=== PATIENT | male | born 1945 | race Caucasian/White ===

== ENCOUNTER → 2016-12-30 | Outpatient (CLI) | payer OTHER ==
[~2016-12-30] MED LIST: ALL100 PO; ASPI325T45 PO; BROM1SOL8; CLB/200 PO; LISI-729 PO; MULT-506 PO; POLYSOL50; PRAV20TA PO; PRDFOPS
--- NOTE | 2016-12-31 05:53 | PAP/PSG TECHNICIAN REPORT ---
[facility] Timber Watchman Polysomnogram Report Study name: None Report date: 12/31/2016 Study date: 12/30/2016 Referring Physician: Murali ALICIA M.D. Name: JEREMY MAHER Interpreting Physician: Rd Alicia M.D. Date of : 1945 Timber Watchman: Zeferino Rajput RPSGT. Sex: Male Age: 71 StudyType: PSG Weight: 284 lbs 16.75 inches Height: 71 years, Height 5' 11" Neck Circum: BMI: 39.61 Medications: LISINOPRIL 5 MG, PRAVASTATIN 40 MG, ASPIRIN 81 MG, ALLOPURINOL 100 MG, CELEBREX 200 MG Patient History PATIENT HAS HISTORY OF INSOMNIA, FATIGUE AND LOUD SNORING. 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 ALSO HAS HISTORY OF MEMORY IMPAIRMENT. HE IS HERE TODAY FOR AN EVALUATION FOR ADILENE. ESS = 5 RM 7 Parameters Monitored NPSG: E1-M2, E2-M1, Fp1-M2, Fp2-M1, F3-M2, F4-M2, F4-M1, C3-M2, C4-M2, C4-M1, O1-M2, O2-M2, O2-M1, T3-M2, T4-M1, P3-M2, P4-M1, CHIN1, CHIN2, HR, EKG, Legs, PFLOW, SNOR, FLOW, CFLOW, Tidal Volume, THOR, ABDO, SpO2, PLTH, CPRESS, ETCO2 Wave, ETCO2, pH Sleep Architecture Sleep Stages Time at Lights Off 10:19:58 PM STAGES Time (min.) TST (%) Time at Lights On 5:29:58 AM Wake 218.0 -- Total Recording Time (TRT) 430.50 min. N1 17.5 8 Total Sleep Period (TSP) 410.0 min. N2 158.5 75 Total Sleep Time (TST) 212.0min. N3 0.0 0 Awake Time 218.0 min. REM 36.0 17 Wake after Sleep Onset 198.0 min. Sleep Efficiency (SE) 49 % Sleep Onset Latency (RAUDEL) 20.0 min. Number of Stage 1 Shifts None Awakenings 25 Stage Changes 82 Number of REM periods 4 REM 36.0 17 REM Latency 264.0 min. NREM 176.0 83 Body Position Analysis Supine Right Left Side Prone Vertical Total Sleep Time (min.) 0.0 212.0 0.0 212.00 0.0 0.0 Total Sleep Time (%) 0% 100% 0% 100 0% N/A% Total Sleep Time REM (min.) 0.0 36.0 0.0 None 0.0 0.0 Total Sleep Time NREM (min.) 0.0 176.0 0.0 None 0.0 0.0 Intermittent Wake (min.) 0.0 218.0 0.0 None 0.0 0.0 Total Sleep Period (%) 0% None None None None None Arousals Myoclonus (PLM) * Events Count Index Events Count Index Spontaneous 18 5 Events Awake (PLMW) 211 58.1 Respiratory 0 0.0 Events Asleep w/ Arousal (PLMA) 38 10.8 PLM 38 11 Events Asleep w/o Arousal (PLMS) 174 49.2 Snoring 3 1 Total Asleep 212 60.0 Total 59 17 Total 423 59 Respiratory Analysis * CA OA MA CH H RERA Total Count 0 0 1 0 3 0 4 Index 0.0 0.0 0.3 0 0.8 0 1.1 Mean Duration 0.0 0.0 17.5 0.00 21.1 0.0 20.2 Longest Duration 0.0 0.0 17.5 0.00 17.5 0.0 26.0 Respiratory Event Summary Total Supine ~Supine Right Left Prone REM NREM Apneas Count 1 N/A 1 1 N/A N/A 0 1 Index 0.3 N/A 0 0.3 N/A N/A 0 0 Hypopneas (4% Desat) Count 3 N/A 3 3 N/A N/A 3 0 Index 0.8 N/A 1 0.8 N/A N/A 5.0 0.0 Apneas & All Hypopneas Count 4 N/A 4 4 N/A N/A 3 1 Index 1.1 N/A 1 1 N/A N/A 5.0 0.3 Respiratory Events (Building Custodian+All Hyp+RERA) Count 4 N/A 4 4 N/A N/A 3 1 Index 1.1 N/A 1 1.1 N/A N/A 5.0 0.3 Respiratory Related Arousal Count 0 N/A 0 0 N/A N/A 0 0 Index 0.0 N/A 0 0 N/A N/A 0 0 Snoring Analysis Supine Right Left Prone REM NREM Total Snore duration 8.5 min Snores count N/A 347 N/A N/A 236 111 347 Snore mean duration 1.5 Sec Snores index N/A 98 N/A N/A 393.3 37.8 98.2 TST with snoring (%) 4.0% Desaturation Event Summary: Minimum %SpO2 Event Count Mean/Min/Max Duration(sec.) Desaturation Index % Time In Bed > 90 7 35.0 / 18.0 / 56.4 1.0 99.8 86 - 90 1 5.8 / 5.8 / 5.8 90.0 0.2 81 - 85 0 N/A 0.0 0.0 76 - 80 0 N/A 0.0 0.0 71 - 75 0 N/A 0.0 0.0 66 - 70 0 N/A 0.0 0.0 61 - 65 0 N/A 0.0 0.0 56 - 60 0 N/A 0.0 0.0 51 - 55 0 N/A 0.0 0.0 < 50 0 N/A 0.0 0.0 Total REM NREM Awake <50% 0.0 min. 0.0 min. 0.0 min. 0.0 min. 51 - 60% 0.0 min. 0.0 min. 0.0 min. 0.0 min. 61 - 70% 0.0 min. 0.0 min. 0.0 min. 0.0 min. 71 - 80% 0.0 min. 0.0 min. 0.0 min. 0.0 min. 81 - 90% 0.7 min. 0.4 min. 0.0 min. 0.3 min. 91 - 100% 403.4 min. 35.6 min. 175.9 min. 191.9 min. Average 94 94 93 94 Minimum SpO2 86 88 90 86 Desaturation Event Index 1.1 5.0 0.3 1.1 # Desat. Events below 89% 2 1 N/A 1 Time(%) with Saturation below 89% 0.0 0.0 0.0 0.0 Time(min.) with Saturation below 89% 0.2 0.1 0.0 0.1 Time (mins) REM (mins) NREM (mins) % of TST SpO2 Below 90% 1 1 NN/A 0.1 SpO2 Below 88% 0 0 0 0 Heart Rate Analysis Min (bpm) Max (bpm) Average (bpm) Awake 52 127 72 NREM 49 79 62 REM 50 70 58 Overall 49 79 61 Supplemental O2 Values Minimum O2 level: None Value Start Time End Time Timber Watchman Comments Mr. Maher slept in the right positions. No cardiac arrhythmia noted. Leg movements noted. No bruxism noted. Snoring was noted and scored as a 2 on a scale of 1 through 5. (0=no snoring, 5=snoring loud enough to be heard through a closed door or down the [address] way) Mr. Maher awoke to use the restroom 0 times during the night. Mr. Maher stated I did not sleep as well as I do when I am in my own bed. Before the study started, the patient was unable to follow my instructions and was in bed sleeping before we started the test. While I was hooking up my other patient, he had the lights out, tv off and when I opened the door and turned the lights on he did not move. He told me he would like to go to bed at 11. During testing, he would remove several wires at a time and would ask where he was and why he was here. 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 I asked him where he was several times and he did not know. After about 1:30 AM, he seemed to stay asleep for the most part and didn't have any other issues the rest of the night. The final report will be interpreted and signed by a sleep physician. The completed physician report will then be placed in the patient medical record. Therapy (cm H2O) 0 TIB (min.) 430.0 TST (min.) 212.0 Sleep Onset (min.) 20.0 REM Onset From Sleep (min.) 264.0 Sleep Efficiency % 49 Wakefulness (%) 51 Wakefulness (min.) 218.0 NREM 1 (%) 8 NREM 1 (min.) 17.5 NREM 2 (%) 75 NREM 2 (min.) 158.5 NREM 3 (%) 0 NREM 3 (min.) 0.0 REM (%) 17 REM (min.) 36.0 # Arousals 59 Arousal Index 17 # Snore 347 Snore Index 98.2 AHI 1.1 AHI Supine N/A AHI Non-Supine 1 NREM AHI 0.3 REM AHI 5.0 RDI 1.1 # Obstructive Apnea 0 # Central Apnea 0 # Mixed Apnea 1 # Hypopneas 3 RERAs 0 Total Respiratory Events 9 Time Below SpO2 89% (min.) 0.1 Mean NREM SpO2 (%) 93 Mean REM SpO2 (%) 94 Mean Sleep SpO2 (%) 93 Min NREM SpO2 (%) 90 Min REM SpO2 (%) 88 Position Supine (min.) 0.0 Position Non-supine (min.) 212.0 LM Index Sleep 60.0 LM Index NREM 70.2 LM Index REM 10.0 Mean Heart Rate (bpm) 61 Min Heart Rate (bpm) 49
--- NOTE | 2017-01-23 09:25 | POLYSOMNOGRAPH REPORT ---
TEST DATE: 12/30/2016. REFERRING PERSON: Dr. Rd Alicia. PACK OPERATOR: Zeferino Rajput. Mr. Botello is a 71-year-old male with insomnia, fatigue and loud snoring. 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 He currently is working with neurology for perceived memory impairment. He is here to rule out obstructive sleep apnea. His Addison Sleepiness Scale score on the evening of this study is 5. BMI is 39.61. Following the technical and digital specifications of the [employer] [employer] (AASM) a standard diagnostic polysomnogram was performed monitoring EEG, EOG, EMG (chin and leg deviations), oxygen saturation, body position, digital video, respiratory effort and airflow. The sleep Stage and event scoring was based on the AASM Manual for the Scoring of Sleep and Associated Events 2007 edition. Apneas are defined as a drop in the peak thermal sensor excursion by >90% of baseline for at least 10 seconds. Hypopneas were scored using the 4% oxygen desaturation rule (4A-[employer]) and a decrease in the nasal pressure excursions by >30% of baseline for at least 10 seconds. Respiratory effort-related arousal (RERA's) is defined as a sequence of breaths lasting at least 10 seconds characterized by increasing respiratory effort or flattening of the nasal pressure waveform leading to an arousal from sleep when the sequence of breaths does not meet criteria for an apnea or hypopnea. Apnea Hypopnea index (AHI) is defined as the number of apneas and hypopneas occurring in an hour of sleep. Respiratory disturbance index (RDI) is defined as the number of apneas, hypopneas, and RERA's occurring in an hour of sleep. Mr. Botello total sleep period time was 410 minutes. Total sleep time was 212 minutes. Sleep efficiency was 49%. Latency to sleep onset was 20 minutes. Awake after sleep onset was 198 minutes. Total non-REM sleep time was 146 minutes. He spent 8% of that time in N1 sleep, 75% in N2 sleep and no time in N3 sleep. REM latency was 264 minutes. Total REM sleep time was 36 minutes or 17% of total sleep time. There were 59 cortical arousals from sleep. Eighteen of these arousals were spontaneous, 38 were due to periodic limb movements of sleep and 3 were due to snoring. There were 212 periodic limb movements noted on this test. Limb movement index was 60. Limb movement with arousal index was 10.8. There were no central obstructive but 1 mixed apnea on this test. There were 3 hypopnea and no RERA. Apnea-hypopnea index was 1.1. There were 347 snoring events recorded. Total sleep time with snoring was 4.0%. Mean saturation was 94% and saturations were only less than 89% for 0.2 minutes of recorded time. There was no cardiac ectopy noted on this study. Heart rates ranged from a low of 49 beats per minute to a high of 79 beats per minute during the test. The serology technician noted that during this study, this patient seemed a bit disoriented. While another patient was being hooked up this patient had light out, TV off and when the tech opened when the door he did no move. He told the tech he likes to got to bed around 11. During the testing, he removed several of the wires at a time and would ask where he was and why he was there. At one point in the night he had many wires removed and he had to be set up from the start. He was asked several times where he was and he did not know. After 1:30 a.m., he seemed to stay sleep and did not have any issues for the remainder of the night. IMPRESSION AND PLAN: A 71-year-old male with memory impairment without evidence of sleep disordered breathing, nocturnal hypoxemia, bruxism, parasomnia or clinically significant periodic limb movements of sleep on this test. He did have some however, limb movement with arousal index was 10.8. Clinical correlation is needed.
== END | disposition home or self-care (01) ==
LOC: C.NEUR 20:00
PROVIDERS: ATTEND Family Medicine
DX: R06.83 Snoring (principal); G47.10 Hypersomnia, unspecified; R41.3 Other amnesia